=== PATIENT | male | born 1960 | race Caucasian/White ===

== ENCOUNTER → 2020-06-05 | Outpatient (CLI) | payer MEDICARE ==
[~2020-06-05] MED LIST: ADVAIR 500-501 EACH INH; ALBUTEROL0.63 MG/3 INH; ALPRAZOLAM0.5 MG PO; ASPIR 8181 MG PO; BETAPACE80 MG PO; CORDARONE 200M200 MG PO; DECADRON6 MG PO; DRISDOL1250 MCG PO; FLONASE 0.05% N16 GM; IBUPROFEN600 MG PO; IPRATROPIU0.2 MG/1 M INH; LEVAQUIN500 MG PO; LEVOXYL100 MCG PO; LIPITOR TAB 2020 MG PO; LIPITOR20 MG PO; LORTAB 7.5-3251 EACH PO; NITROSTAT 0.4100 TAB SL; NORCO 7.5-3251 EACH PO; OMEPRAZOLE40 MG PO; PHENERGAN 25 MG25 M1 PO; PLAVIX 75 MG TA75 MG PO; PROVENTIL HFA6.7 GM INH; SOTALOL80 MG PO; SPIRIVA HANDIH18 MCG INH; SYNTHROID100 MCG PO; THEO-24200 MG PO; THEOPHYLLINE400 MG PO; VITAMIN D250000 UNIT PO; XANAX0.25 MG PO; XOPENEX1.25 MG/3 INH; XOPENEX1.25 MG/3 PO; ZOFRAN4 MG PO
[2020-06-05 13:57] LABS: HEMOGLOBIN 13.3 gm/dl (14.0-17.5); RED BLOOD COUNT 4.47 M/UL (4.20-5.50); WHITE BLOOD COUNT 7.9 K/UL (4.5-11.0)
[2020-06-05 14:38] LABS: BUN/CREATININE RATIO 16 (0-10)
== END ==
LOC: LAB 13:23
PROVIDERS: Family Medicine
DX: E78.5 Hyperlipidemia, unspecified (principal); I10 Essential (primary) hypertension; Z12.5 Encounter for screening for malignant neoplasm of prostate; E55.9 Vitamin D deficiency, unspecified
CPT/HCPCS: 36415; 80053; 80061; 84439; 84443; 85027; G0103

== ENCOUNTER → 2021-01-18 | Outpatient (CLI) | payer MEDICARE | LOC: HEART 5 10:50 | DX: J44.9 Chronic obstructive pulmonary disease, unspecified (principal) | CPT/HCPCS: 94060; 94729 ==

== ENCOUNTER → 2021-02-04 | Outpatient (CLI) | payer MEDICARE | LOC: HEART 5 01-20 10:00 | DX: I48.0 Paroxysmal atrial fibrillation (principal); R06.02 Shortness of breath; I07.1 Rheumatic tricuspid insufficiency; I27.20 Pulmonary hypertension, unspecified | CPT/HCPCS: 93306 ==

== ENCOUNTER 2021-03-11 20:59 | Inpatient (IN) | payer MEDICARE, MEDICAID ==
[~2021-03-11] VITALS: Ht 180.3 cm; Wt 96.2 kg
[~2021-03-11 20:59] MED LIST changes: -LIPITOR20 MG PO; -NORCO 7.5-3251 EACH PO; -SYNTHROID100 MCG PO; -XOPENEX1.25 MG/3 PO
[2021-03-11 21:27] LABS: HEMOGLOBIN 13.9 gm/dl (14.0-17.5); RED BLOOD COUNT 4.59 M/UL (4.20-5.50); WHITE BLOOD COUNT 13.7 K/UL (4.5-11.0)
[2021-03-12 00:11] LABS: BORDETELLA PARAPERTUSSIS Not Detected (Not Detectd); BORDETELLA PERTUSSIS Not Detected (Not Detectd); CHLAMYDIA PNEUMONIAE Not Detected (Not Detectd); CORONAVIRUS HKU1 Not Detected (Not Detectd); CORONAVIRUS NL63 Not Detected (Not Detectd); CORONAVIRUS OC43 Not Detected (Not Detectd); CORONOAVIRUS 229E Not Detected (Not Detectd); HUMAN METAPNEUMOVIRUS Not Detected (Not Detectd); HUMAN RHINOVIRUS/ENTEROVIRUS Not Detected (Not Detectd); INFLUENZA A Not Detected (Not Detectd); INFLUENZA B Not Detected (Not Detectd); MYCOPLASMA PNEUMONIAE Not Detected (Not Detectd); PARAINFLUENZA VIRUS 1 Not Detected (Not Detectd); PARAINFLUENZA VIRUS 2 Not Detected (Not Detectd); PARAINFLUENZA VIRUS 3 Not Detected (Not Detectd); PARAINFLUENZA VIRUS 4 Not Detected (Not Detectd); RESPIRATORY SYNCYTIAL VIRUS Not Detected (Not Detectd)
[2021-03-12 01:08] LABS: SARS-CoV-2 NOT DETECTED (Not Detectd)
[2021-03-12] MEDS ORDERED: PROAIR DIGIHAL90 MCG INH (09:59)
[2021-03-12] MEDS ORDERED: VITAMIN D350 MC3 PO (10:00)
[2021-03-12] MEDS ORDERED: MONTELUKAST SOD10 MG PO (10:00)
[2021-03-12] MEDS ORDERED: TYLENOL EXTRA500 MG PO (10:01)
[2021-03-12] MEDS ORDERED: PREDNISONE10 MG PO (10:02)
[2021-03-12] MEDS ORDERED: FUROSEMIDE20 MG PO (11:49)
[2021-03-12] MEDS ORDERED: THEOPHYLLINE400 MG PO (13:57)
[2021-03-12] MEDS ORDERED: ADVAIR 500-501 EACH INH (16:04)
[2021-03-12] MEDS ORDERED: SPIRIVA HANDIH18 MCG INH (16:04)
[2021-03-12] MEDS ORDERED: LIPITOR20 MG PO (16:05)
[2021-03-12] MEDS ORDERED: HYDROCODON-ACE1 EAC2 PO (16:06)
[2021-03-12] MEDS ORDERED: XOPENEX1.25 MG/3 NEB (16:07)
[2021-03-12] MEDS ORDERED: SYNTHROID100 MCG PO (16:08)
[2021-03-13 02:52] LABS: HEMOGLOBIN 13.1 gm/dl (14.0-17.5); RED BLOOD COUNT 4.42 M/UL (4.20-5.50); WHITE BLOOD COUNT 11.5 K/UL (4.5-11.0)
[2021-03-13 03:47] LABS: BUN/CREATININE RATIO 15 (0-10)
[2021-03-14 03:23] LABS: HEMOGLOBIN 13.4 gm/dl (14.0-17.5); RED BLOOD COUNT 4.44 M/UL (4.20-5.50)
[2021-03-14 03:53] LABS: BUN/CREATININE RATIO 18 (0-10)
[2021-03-15 03:40] LABS: HEMOGLOBIN 13.1 gm/dl (14.0-17.5); RED BLOOD COUNT 4.36 M/UL (4.20-5.50)
[2021-03-15 03:43] LABS: WHITE BLOOD COUNT 11.9 K/UL (4.5-11.0)
[2021-03-15 04:17] LABS: BUN/CREATININE RATIO 18 (0-10)
[2021-03-16 06:51] LABS: HEMOGLOBIN 13.4 gm/dl (14.0-17.5); RED BLOOD COUNT 4.49 M/UL (4.20-5.50); WHITE BLOOD COUNT 13.9 K/UL (4.5-11.0)
[2021-03-16 07:17] LABS: BUN/CREATININE RATIO 21 (0-10)
[2021-03-17 06:49] LABS: HEMOGLOBIN 12.4 gm/dl (14.0-17.5); RED BLOOD COUNT 4.2 M/UL (4.20-5.50)
[2021-03-17 06:50] LABS: WHITE BLOOD COUNT 9.8 K/UL (4.5-11.0)
[2021-03-17 07:22] LABS: BUN/CREATININE RATIO 16 (0-10)
[2021-03-18 07:03] LABS: HEMOGLOBIN 12.6 gm/dl (14.0-17.5); RED BLOOD COUNT 4.26 M/UL (4.20-5.50); WHITE BLOOD COUNT 9.6 K/UL (4.5-11.0)
[2021-03-18 07:42] LABS: BUN/CREATININE RATIO 15 (0-10)
[2021-03-19 06:41] LABS: RED BLOOD COUNT 4.18 M/UL (4.20-5.50); WHITE BLOOD COUNT 10.6 K/UL (4.5-11.0)
[2021-03-19 06:57] LABS: BUN/CREATININE RATIO 13 (0-10)
[2021-03-19] MEDS ORDERED: FLONASE 0.05% N16 GM (18:04)
[2021-03-19] MEDS ORDERED: PREDNISONE5 MG PO (18:04)
[2021-03-19] MEDS ORDERED: IPRATROPIU0.2 MG/1 M NEB (18:04)
[2021-03-19] MEDS ORDERED: PROTONIX 40 MG40 M1 PO (18:04)
[2021-03-19] MEDS ORDERED: STIMULANT LAXA1 EACH PO (18:04)
[2021-03-19] MEDS ORDERED: DOXYCYCLINE HY100 MG PO (18:10)
== END 2021-03-19 19:28 | disposition home health service (06) | DRG 186 ==
LOC: ER1 20:59 → PROG CARE 03-12 07:22 → CDU 03-12 07:22 → MED SURG 4 03-12 07:22 → PROG CARE 03-12 14:36 → MED SURG 4 03-15 19:59
PROVIDERS: Internal Medicine; Internal Medicine Pulmonary Disease; Physician Assistant Medical; Preventive Medicine Occupational Medicine; ADMIT Internal Medicine
PROC: 0W9930Z Drainage of Right Pleural Cavity with Drainage Device, Percutaneous Approach (ICD-10-PCS; principal; 2021-03-12)
PROC: 3E02340 Introduction of Influenza Vaccine into Muscle, Percutaneous Approach (ICD-10-PCS; 2021-03-19)
DX: J94.8 Other specified pleural conditions (principal); J96.21 Acute and chronic respiratory failure with hypoxia; J18.9 Pneumonia, unspecified organism; J96.22 Acute and chronic respiratory failure with hypercapnia; J44.1 Chronic obstructive pulmonary disease with (acute) exacerbation; I47.1 Supraventricular tachycardia; E11.9 Type 2 diabetes mellitus without complications; I48.91 Unspecified atrial fibrillation; G89.4 Chronic pain syndrome; E03.9 Hypothyroidism, unspecified; Z86.16 Personal history of COVID-19; Z95.0 Presence of cardiac pacemaker; Z98.890 Other specified postprocedural states; Z88.0 Allergy status to penicillin; Z88.8 Allergy status to other drugs, medicaments and biological substances; Z79.899 Other long term (current) drug therapy; Z79.02 Long term (current) use of antithrombotics/antiplatelets; Z87.891 Personal history of nicotine dependence; Z82.49 Family history of ischemic heart disease and other diseases of the circulatory system; Z23 Encounter for immunization
CPT/HCPCS: 36415; 36600; 71045; 71046; 71250; 74018; 74019; 80048; 80053; 81001; 82550; 82553; 82803; 83036; 83605; 83690; 83735; 83874; 83880; 84100; 84484; 85025; 85027; 85652; 86140; 87086; 87633; 90686; 93005; 94640; 94660; 94664; 94760; 96374; 97116-GP-CQ; 97161; 97530; 97530-GP-CQ; 99285; G0008; J0696; J1956; J2270; J2405; J2920; Q9967

== ENCOUNTER → 2021-11-19 | Outpatient (CLI) | payer MEDICARE ==
[~2021-11-19] MED LIST changes: +DOXYCYCLINE HY100 MG PO; +FUROSEMIDE20 MG PO; +HYDROCODON-ACE1 EAC2 PO; +IPRATROPIU0.2 MG/1 M NEB; +LIPITOR20 MG PO; +MONTELUKAST SOD10 MG PO; +PREDNISONE10 MG PO; +PREDNISONE5 MG PO; +PROAIR DIGIHAL90 MCG INH; +PROTONIX 40 MG40 M1 PO; +STIMULANT LAXA1 EACH PO; +SYNTHROID100 MCG PO; +TYLENOL EXTRA500 MG PO; +VITAMIN D350 MC3 PO; +XOPENEX1.25 MG/3 NEB
== END ==
LOC: RAD 13:35
DX: J20.9 Acute bronchitis, unspecified (principal)
CPT/HCPCS: 71046